=== PATIENT | female | born 1950 | race Caucasian/White ===

== ENCOUNTER → 2017-10-24 | Outpatient (CLI) | payer MEDICARE, OTHER ==
[~2017-10-24] MED LIST: ASP81CT PO; ASP81TEC PO; ATR20T PO; CALC-760 PO; CALC-80 PO; DIPH25TA82 PO; FLC150T PO; HYDR-3583 PO; LISI5TAB PO; MULT-608 PO; NYST1000 PO; OXYC-12 PO; OXYC-281 PO; SIMV40TA4 PO; SULF1TAB38 PO; TMSL.4C BC; TMSL.4C PO
--- NOTE | 2017-10-24 12:16 | Diagnostic Imaging Report ---
EXAMINATION: DEXA scan. INDICATION: Osteopenia. TECHNIQUE: Bone mineral density estimated based on dual energy radiography over the lumbar spine and femoral necks, was performed. FINDINGS: The lumbar spine T-score is -1.1. T score over the left femoral neck is -1.9. The right hip has internal fixation hardware preventing its measurements. IMPRESSION: Osteopenia. Dictated by: Dictated on workstation # [id number]
== END ==
LOC: RAD 10:12
PROVIDERS: ATTEND Internal Medicine
DX: M85.852 Other specified disorders of bone density and structure, left thigh (principal); M85.88 Other specified disorders of bone density and structure, other site
CPT/HCPCS: 77080

== ENCOUNTER 2020-10-08 14:14 | Emergency (ER) | payer MEDICARE, OTHER ==
[~2020-10-08] VITALS: Ht 154.9 cm; Wt 56.7 kg
--- NOTE | 2020-10-08 15:14 | ED Fall/Injury ---
General Chief Complaint: Trauma-Non Activation Stated Complaint: FALL - R HAND PAIN - HIT HEAD Source: patient Exam Limitations: no limitations History of Present Illness Date Seen by Provider: Oct 08, 2020 Time Seen by Provider: 15:12 Initial Comments To ER with a fall at home. She is not sure why she fell. This occurred while she was walking up a ramp. She now has pain and deformity to the proximal aspect of the right third fourth and fifth fingers, some bruising over the base of the left thumb and an abrasion to the bridge of her nose and the bottom of her nose. No neck pain or headache. Occurred: just prior to arrival Severity: moderate Injuries/Pain Location: no injury Loss of Consciousness: no loss of consciousness Associated Symptoms (Fall): No Headache, No Neck Pain Allergies and Home Medications Allergies Coded Allergies: morphine (Unverified Allergy, HIVRADHA, 12/04/10) Home Medications Aspirin 81 Mg Chew, 81 MG PO DAILY, (Reported) Atorvastatin 20 Mg Tablet, 1 EACH PO DAILY, (Reported) Multivitamins 1 Tab Tablet, 1 TAB PO DAILY, (Reported) Oxycodone HCl/Acetaminophen 1 Each Tablet, 1 TAB PO Q4H Prescribed by: YAKELIN REID on 10/08/20 1554 Oxycodone Hcl/Acetaminophen 1 Each Tablet, 1 EACH PO Q6H, (Reported) Tamsulosin Hcl 0.4 Mg Cap, 0.4 MG BC DAILY, (Reported) Patient Home Medication List Home Medication List Reviewed: Yes Review of Systems Review of Systems Constitutional: see HPI Eyes: No Symptoms Reported Ears, Nose, Mouth, Throat: no symptoms reported Respiratory: no symptoms reported Cardiovascular: no symptoms reported Genitourinary: no symptoms reported Musculoskeletal: see HPI Skin: no symptoms reported Psychiatric/Neurological: No Symptoms Reported Past Ifrdmsp-Sqwfsg-Ngonht Hx Patient Social History Recent Foreign Travel: No Contact w/Someone Who Travel: No Past Medical History Reproductive Disorders: No Physical Exam Vital Signs Vital Signs - First Documented 10/08/20 14:57 Pulse 99 Resp 20 B/P (MAP) 176/82 (113) Pulse Ox 97 O2 Delivery Room Air Capillary Refill : Height, Weight, BMI Height: '" Weight: lbs. oz. kg; BMI Method: General Appearance: WD/WN, no apparent distress HEENT: PERRL/EOMI, normal ENT inspection, TMs normal, other (There is no cast sign or hemotympanum no septal deviation that is apparent no epistaxis no septal hematoma. There is an abrasion to the tip of the nose and the bridge of the nose but no laceration and nothing that requires suturing. No periorbital ecchymosis ) Respiratory: no respiratory distress, no accessory muscle use Gastrointestinal: normal bowel sounds, non tender, soft Extremities: other (She does have some bruising over the proximal aspect of the second and third metacarpals on the right hand as well as some deformity at the third fourth and fifth MCP joints of the right hand. There is no visible swelling of the left hand.) Neurologic/Psychiatric: alert, normal mood/affect, oriented x 3 Skin: normal color, warm/dry Chappells Coma Score Best Eye Response: (4) Open Spontaneously Best Verbal Response: (5) Oriented Best Motor Response: (6) Obeys Commands Stone Total: 15 Progress/Results/Core Measures Results/Orders My Orders Orders - YAKELIN REID APRN Ct Head/Cervical Spine Wo (10/08/20 15:11) Oxycodone/Apap 5/325mg Tablet (Percocet (10/08/20 15:15) Hand, Right, 3 Views (10/08/20 15:11) Medications Given in ED Current Medications Medications Dose Ordered Sig/[place] Route Start Time Stop Time Status Last Admin Dose Admin Oxycodone/ Acetaminophen 1 tab ONCE ONCE PO 10/08/20 15:15 10/08/20 15:16 DC 10/08/20 15:35 1 TAB Vital Signs/I&O 10/08/20 10/08/20 14:57 16:36 Pulse 99 87 Resp 20 20 B/P (MAP) 176/82 (113) 142/80 (113) Pulse Ox 97 98 O2 Delivery Room Air Departure Communication (Admissions) placed in a volar wrist splint extending out past the fingertips using o rthoglass. Remains neurovascularly intact. Impression Primary Impression: Finger fracture, right Qualified Codes: S62.616A - Displaced fracture of proximal phalanx of right little finger, initial encounter for closed fracture Disposition: HOME, SELF-CARE Condition: Stable Departure-Patient Inst. Decision time for Depature: 15:53 Referrals: LALY RAMOS JOHN D MD (PCP/Family) Primary Care Physician ZAFUTA,SAMARA P MD Patient Instructions: Hand Fracture Add. Discharge Instructions: 1. Wear the splint at all times. Keep the hand elevated as you have been doing. Try to keep the splint dry which means a trash bag over the arm in the meantime to help keep it from getting wet in the shower. Pain medication as directed. Call an orthopedist of your choosing on Saturday for an appointment to be seen. All discharge instructions reviewed with patient and/or family. Voiced understanding. Scripts Oxycodone HCl/Acetaminophen (Percocet 5-325 mg Tablet) 1 Each Tablet 1 TAB PO Q4H for PAIN-MODERATE MDD 6 TABS for 7 Days, #14 TAB Prov: YAKELIN REID APRN 10/08/20 YAKELIN REID APRN Oct 08, 2020 15:14
[2020-10-08] MEDS ORDERED: oxyCODONE/APAP 5/325MG (PERCOCET 5) TABLET PO ONE (15:15)
[2020-10-08] MEDS ORDERED: OXYC1TAB87 PO (15:54)
--- NOTE | 2020-10-08 15:54 | Diagnostic Imaging Report ---
INDICATION: Fall, right hand pain. EXAMINATION: Four views of the right hand were obtained. FINDINGS: Nondisplaced oblique fracture of the proximal phalanx of the 3rd digit. There is a mildly displaced angulated fracture involving the proximal aspect of the proximal phalanx of the 4th digit which extends to the metacarpophalangeal joint. There is an oblique fracture of the proximal aspect of the proximal phalanx of the 5th digit which is mildly angulated. IMPRESSION: There are fractures of the proximal phalanges of the 3rd, 4th and 5th digits. Dictated by: Dictated on workstation # [id number]
--- NOTE | 2020-10-08 15:58 | Diagnostic Imaging Report ---
PROCEDURE: CT head and CT cervical spine without contrast. TECHNIQUE: Multiple contiguous axial images were obtained through the brain and cervical spine without the use of intravenous contrast. Sagittal and coronal reformations through the cervical spine were then performed. Auto Exposure Controls were utilized during the CT exam to meet ALARA standards for radiation dose reduction. INDICATION: Fall, headache. FINDINGS: The ventricles are normal in size, shape and position. There is no acute parenchymal hemorrhage, edema or mass. There is no extra-axial mass or hemorrhage. No skull fracture is seen. There is normal height and alignment of the cervical vertebral bodies. There is at least some disc space narrowing at all levels but is most pronounced at C4-C5 and C5-C6. No fracture or other acute abnormality is seen. IMPRESSION: 1. CT of the head shows no acute abnormality. 2. CT of the cervical spine shows degenerative changes but no acute abnormality. Dictated by: Dictated on workstation # [id number]
[2020-10-08 16:36] VITALS: BP 142/80
== END 2020-10-08 16:36 | disposition home or self-care (01) ==
LOC: EDUNIT# 14:14 → ER 14:15
DX: S62.642A Nondisplaced fracture of proximal phalanx of right middle finger, initial encounter for closed fracture (principal); S62.614A Displaced fracture of proximal phalanx of right ring finger, initial encounter for closed fracture; S62.616A Displaced fracture of proximal phalanx of right little finger, initial encounter for closed fracture; S60.012A Contusion of left thumb without damage to nail, initial encounter; S00.31XA Abrasion of nose, initial encounter; R40.2410 Glasgow coma scale score 13-15, unspecified time; Z88.5 Allergy status to narcotic agent; Z79.82 Long term (current) use of aspirin; W18.39XA Other fall on same level, initial encounter
CPT/HCPCS: 29125; 70450; 72125; 73130

== ENCOUNTER → 2020-10-10 | Outpatient (CLI) | payer MEDICARE, OTHER ==
[~2020-10-10] MED LIST changes: +OXYC1TAB87 PO
[2020-10-10 13:52] LABS: ABSOLUTE RETIC # 40 10e9/uL (24-90); BASOPHILS % (AUTO) 1 % (0-10); EOSINOPHILS # (AUTO) 0.1 10^3/uL (0.0-0.3); EOSINOPHILS % (AUTO) 2 % (0-10); HEMATOCRIT 38 % (35-52); HEMOGLOBIN 12.2 g/dL (11.5-16.0); LYMPHOCYTES % (AUTO) 20 % (12-44); MEAN CORPUSCULAR HEMOGLOBIN 29 pg (25-34); MEAN CORPUSCULAR HGB CONC 32 g/dL (32-36); MEAN CORPUSCULAR VOLUME 89 fL (80-99); MONOCYTES # (AUTO) 0.7 10^3/uL (0.0-1.0); MONOCYTES % (AUTO) 13 % (0-12); NEUTROPHILS # (AUTO) 3.2 10^3/uL (1.8-7.8); NEUTROPHILS % (AUTO) 64 % (42-75); PLATELET COUNT 238 10^3/uL (130-400); RETICULOCYTE % 0.94 % (0.50-2.40); WHITE BLOOD COUNT 4.9 10^3/uL (4.3-11.0)
[2020-10-10 14:20] LABS: BASOPHILS % (MANUAL) 1 %; EOSINOPHILS % (MANUAL) 2 %; LYMPHOCYTES % (MANUAL) 25 %; MONOCYTES % (MANUAL) 11 %; NEUTROPHILS % (MANUAL) 61 %; RBC MORPH NORMAL
== END ==
LOC: LAB 13:15
PROVIDERS: ATTEND Internal Medicine
DX: D72.819 Decreased white blood cell count, unspecified (principal); D72.821 Monocytosis (symptomatic)
CPT/HCPCS: 36415; 82977; 84075; 85007; 85027; 85045; 85055

== ENCOUNTER → 2021-04-25 | Outpatient (CLI) | payer MEDICARE, OTHER ==
--- NOTE | 2021-04-25 15:28 | Diagnostic Imaging Report ---
INDICATION: 70-year-old asymptomatic postmenopausal female. COMPARISON: 10/24/2017 FINDINGS: AP Spine L1-L4: [BMD (g/cm2): 0.890] [T-Score: -2.6] [Z-Score: -0.7] [BMD Previous: 1.068] [BMD % Change: -16.7] LT Hip Neck: [BMD (g/cm2): 0.600] [T-Score: -3.1] [Z-Score: -1.3] LT Hip Total: [BMD (g/cm2):0.716] [T-Score:-2.3] [Z-Score: -0.7] [BMD Previous: 0.774] [BMD % Change: -7.5] *Indicates significant change from prior examination based on 95% confidence level. World Health Organization criteria for BMD interpretation classify patients as Normal (T-score at or above -1.0), Osteopenic (T-score between -1.0 and -2.5) or Osteoporotic (T-score at or below -2.5). LIMITATIONS AND MODIFICATION: Right hip is unable be utilized due to orthopedic hardware. FRACTURE RISK (FRAX SCORE): Not applicable as patient meets criteria for osteoporosis. IMPRESSION: 1. Osteoporosis. 2. No significant change in bone mineral density since prior examination. 3. See below National Osteoporosis Foundation guidelines on when to potentially initiate pharmacologic therapy. Based on the National Osteoporosis Foundation Guidelines, pharmacologic treatment should be initiated in any of the following, unless clinical conditions suggest otherwise: * Any patient with prior fragility fracture of the hip or vertebrae. A spine fracture indicates 5X risk for subsequent spine fracture and 2X risk for subsequent hip fracture. * Osteoporosis (T-score <-2.5). * Postmenopausal women and men age 50 and older with low bone mass/osteopenia (T-score between -1.0 and -2.5) by DXA and 10-year major osteoporotic fracture greater than 20% or a 10-year probability of hip fracture greater than 3%. These fracture risks are supplied above in the FRAX score, if applicable. * Clinician judgement and/or patient preferences may indicate treatment for people with 10-year fracture probabilities above or below these levels. Dictated by: Dictated on workstation # [id number]
== END ==
LOC: RAD 11:00
PROVIDERS: ATTEND Internal Medicine
DX: M81.0 Age-related osteoporosis without current pathological fracture (principal); Z78.0 Asymptomatic menopausal state
CPT/HCPCS: 77080

== ENCOUNTER 2021-09-18 05:37 | Outpatient (CLI) | payer MEDICARE, OTHER ==
[~2021-09-18] VITALS: Ht 157.5 cm; Wt 59.9 kg
[2021-09-18] MEDS ORDERED: ASPI-999 PO (14:19)
[2021-09-18] MEDS ORDERED: ATOR20TA66 PO (14:19)
[2021-09-18] MEDS ORDERED: CALC600T91 PO (14:19)
[2021-09-18] MEDS ORDERED: ALEN70TA80 PO (14:19)
== END 2021-09-18 16:18 | disposition home or self-care (01) ==
LOC: PREOP 05:37
PROVIDERS: ATTEND Surgery
DX: Z01.818 Encounter for other preprocedural examination (principal)

== ENCOUNTER → 2021-09-25 | Day surgery (SDC) | payer MEDICARE, OTHER ==
[~2021-09-25] VITALS: Ht 157.5 cm; Wt 59.9 kg
[~2021-09-25] MED LIST changes: +ALEN70TA80 PO; +ASPI-999 PO; +ATOR20TA66 PO; +CALC600T91 PO; +LACTATED RINGERS 1,000 ML IV ONE; +LACTATED RINGERS 1,000 ML IV STA; +MIDAZOLAM 2 MG/2 ML (VERSED) VIAL ONE; +PROPOFOL INJECTION 50 ML IV ONE
[2021-09-25 09:20] VITALS: BP 170/78
--- NOTE | 2021-09-25 09:32 | Progress Note-Pre Operative ---
Pre-Operative Progress Note H&P Reviewed The H&P was reviewed, patient examined and no changes noted. Time Seen by Provider: 09:29 Date H&P Reviewed: Sep 25, 2021 Time H&P Reviewed: :29 Pre-Operative Diagnosis: screening colon ELIEL ROBBINS DO Sep 25, 2021 09:32
[2021-09-25 10:35] VITALS: BP 93/47
[2021-09-25 10:40] VITALS: BP 94/50
[2021-09-25 10:45] VITALS: BP 115/58
--- NOTE | 2021-09-25 10:46 | Progress Note-Post Operative ---
Post-Operative Progess Note Surgeon (s)/Language Path (s) Surgeon ELIEL ROBBINS DO Language Path: SHAREE Graff Pre-Operative Diagnosis screening colon Post-Operative Diagnosis Polyps poor prep diverticula int hemorrhoids Procedure & Operative Findings Date of Procedure 09/25/21 Procedure Performed/Findings Colon with snare Colon with hot bx PROCEDURE NOTE: After informed consent was obtained, the patient was brought to the endoscopy suite, placed in bed in left lateral decubitus position. She was administered IV sedation by the ACUTE CARE NURSING ASSISTANT who then monitored her vitals the entire time, heart rate, blood pressure and pulse ox and the scope was inserted, pushed all the way to about 150 cm and pushed into the cecum, took a picture of appendiceal orifice and noted the Ileo-cecal valve. She unfortunately had a lot of retained fecal material, unable to suction all of it up because the pieces got stuck in channel. Just outside the cecum saw 3 flat polyps, elected to do hot biopsy. Then slowly withdrew the scope insufflating to look circumferentially at the longoria. Starting from the cecum, up the ascending colon to the hepatic flexure, then down the transverse colon, splenic flexure, into the descending colon where I saw one diverticula. Continued down into the sigmoid and almost to the rectum, saw another larger polyp. I wanted to completely remove this one so I elected to do a snare polypectomy. Finally into the rectal vault and retroflexed the scope. Took picture of the internal hemorrhoids. The patient tolerated the procedure. She was recovered in endoscopy suite. Anesthesia Type IV sedation by ACUTE CARE NURSING ASSISTANT Estimated Blood Loss Estimated blood loss (mL): scant Specimens/Packing Specimens Removed asc colon polyp x 3 sigmoid polyp ELIEL ROBBINS DO Sep 25, 2021 10:46
--- NOTE | 2021-09-25 10:47 | Endoscopy Discharge Instruct ---
Endo Procedure/Findings Findings 1.: Polyp 2.: Diverticulosis 3.: Internal Hemorrhoids 4.: Other Findings (poor prep) Discharge Instructions - Activity: You might feel a little sleepy until tomorrow. This is due to the medicine you received to relax you. Until tomorrow, you should: NOT drive a car, operate machinery or power tools. NOT drink any alcoholic beverages. NOT make any important decisions or sign importortant papers. Do not return to work until tomorrow, unless otherwise instructed. Resume previous activities tomorrow. Diet: Start by taking liquids. If you tolerate liquids, advance to solid food. 1.: Colonoscopy in 1 year Notify Physician - If you experience excessive bleeding, unusual abdominal pain, fever, or chest pain, contact your doctor immediately. ELIEL ROBBINS DO Sep 25, 2021 10:47
[2021-09-25 11:17] VITALS: BP 115/58
--- NOTE | 2021-09-25 11:43 | Anesthesia-General Post-Op ---
MAC Patient Condition Mental Status/LOC: Same as Preop Cardiovascular: Satisfactory Nausea/Vomiting: Absent Respiratory: Satisfactory Pain: Controlled Complications: Absent Post Op Complications Complications None Follow Up Care/Instructions Patient Instructions None needed. Anesthesiology Discharge Order Discharge Order Patient is doing well, no complaints, stable vital signs, no apparent adverse anesthesia problems. No complications reported per nursing. ADA ROSS CRNA Sep 25, 2021 11:43
== END | disposition home or self-care (01) ==
LOC: ENDO 08:44
PROVIDERS: ATTEND Surgery
DX: Z12.11 Encounter for screening for malignant neoplasm of colon (principal); D12.2 Benign neoplasm of ascending colon; K63.5 Polyp of colon; K57.30 Diverticulosis of large intestine without perforation or abscess without bleeding; E78.5 Hyperlipidemia, unspecified; Z88.5 Allergy status to narcotic agent; Z79.82 Long term (current) use of aspirin; Z79.899 Other long term (current) drug therapy; Z85.51 Personal history of malignant neoplasm of bladder
CPT/HCPCS: 88305

== ENCOUNTER → 2022-01-30 | Outpatient (CLI) | payer MEDICARE, OTHER ==
[~2022-01-30] MED LIST changes: -LACTATED RINGERS 1,000 ML IV ONE; -LACTATED RINGERS 1,000 ML IV STA; -MIDAZOLAM 2 MG/2 ML (VERSED) VIAL ONE; -PROPOFOL INJECTION 50 ML IV ONE
--- NOTE | 2022-01-30 15:35 | Diagnostic Imaging Report ---
INDICATION: Kidney calculus. TIME OF EXAM: 2:30 PM CORRELATION is made with prior radiograph from 09/25/2016. Ovoid calcific density is noted in the left abdomen at L2. This could potentially be ureteric. Additional calcific densities project just cephalad to this which may be located within the left kidney. Right kidneys shadow is obscured by fecal material. Bowel gas pattern is nonobstructed. There are postoperative changes of the right hip. IMPRESSION: 1. Left sided abdominal calcifications could be urinary tract based. An ovoid calcific density projects in the region of the proximal left ureter measuring 18 mm x [address] may be useful for further characterization. 2. Moderate stool in the colon consistent with constipation. Dictated by: Dictated on workstation # [id number]
== END ==
LOC: RAD 13:53
PROVIDERS: ATTEND Specialist
DX: N20.0 Calculus of kidney (principal); C67.2 Malignant neoplasm of lateral wall of bladder
CPT/HCPCS: 74018

== ENCOUNTER → 2022-04-30 | Outpatient (CLI) | payer MEDICARE, OTHER ==
--- NOTE | 2022-04-30 13:16 | Diagnostic Imaging Report ---
PROCEDURE: CT head and maxillofacial without contrast. TECHNIQUE: Multiple contiguous axial images were obtained through the head and facial bones without the use of intravenous contrast. Auto Exposure Controls were utilized during the CT exam to meet ALARA standards for radiation dose reduction. INDICATION: Fall. Head and facial pain. COMPARISON: CT head without contrast 10/08/2020. FINDINGS: Mild to moderate generalized parenchymal volume loss. 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 No CT evidence of acute territorial infarction. No intracranial hemorrhage, mass effect, hydrocephalus or extra-axial fluid collections. Intracranial vascular calcifications. The skull base and calvarium are intact. Paranasal sinuses and mastoids are clear. Chronic fracture of the left zygoma. Age-indeterminate minimally displaced bilateral nasal bone fractures. No other maxillofacial fractures. Normal alignment of the temporomandibular joints. The mandible is intact. IMPRESSION: 1. No acute intracranial CT findings. 2. Age-indeterminate minimally displaced nasal bone fractures. 3. Chronic left zygoma fracture. Dictated by: Dictated on workstation # [id number]
== END ==
LOC: RAD 12:26
PROVIDERS: ATTEND Internal Medicine
DX: S02.40FA Zygomatic fracture, left side, initial encounter for closed fracture (principal); W19.XXXA Unspecified fall, initial encounter
CPT/HCPCS: 70450; 70486

== ENCOUNTER → 2022-09-25 | Outpatient (CLI) | payer MEDICARE, OTHER ==
[2022-09-25 11:12] LABS: ABSOLUTE RETIC # 40 10e9/uL (24-90); BASOPHILS # (AUTO) 0.1 10^3/uL (0.0-0.1); BASOPHILS % (AUTO) 2 % (0-10); EOSINOPHILS # (AUTO) 0.2 10^3/uL (0.0-0.3); EOSINOPHILS % (AUTO) 5 % (0-10); HEMATOCRIT 39 % (35-52); HEMOGLOBIN 13.1 g/dL (11.5-16.0); LYMPHOCYTES # (AUTO) 1.2 10^3/uL (1.0-4.0); LYMPHOCYTES % (AUTO) 31 % (12-44); MEAN CORPUSCULAR HEMOGLOBIN 29 pg (25-34); MEAN CORPUSCULAR HGB CONC 33 g/dL (32-36); MEAN CORPUSCULAR VOLUME 87 fL (80-99); MEAN PLATELET VOLUME 9.8 fL (9.0-12.2); MONOCYTES # (AUTO) 0.6 10^3/uL (0.0-1.0); MONOCYTES % (AUTO) 15 % (0-12); NEUTROPHILS # (AUTO) 1.9 10^3/uL (1.8-7.8); NEUTROPHILS % (AUTO) 48 % (42-75); PLATELET COUNT 255 10^3/uL (130-400); RETICULOCYTE % 0.88 % (0.50-2.40)
[2022-09-25 11:44] LABS: BAND NEUTROPHILS 0 %; BASOPHILS % (MANUAL) 2 %; EOSINOPHILS % (MANUAL) 3 %; LYMPHOCYTES % (MANUAL) 28 %; MONOCYTES % (MANUAL) 20 %; NEUTROPHILS % (MANUAL) 47 %; RBC MORPH NORMAL
== END ==
LOC: LAB 10:36
PROVIDERS: ATTEND Nurse Practitioner Family
DX: D72.818 Other decreased white blood cell count (principal); D72.821 Monocytosis (symptomatic); E83.50 Unspecified disorder of calcium metabolism
CPT/HCPCS: 36415; 82310; 85007; 85027; 85045; 85055

== ENCOUNTER → 2023-04-30 | Outpatient (CLI) | payer MEDICARE, OTHER ==
--- NOTE | 2023-04-30 16:50 | Diagnostic Imaging Report ---
INDICATION: Postmenopausal state COMPARISON: 04/25/2021 FINDINGS: AP Spine L1-L4: [BMD (g/cm2): 0.958] [T-Score: -2.0] [Z-Score: 0.0] [BMD Previous: 0.890] [BMD % Change: 7.6*] LT Hip Neck: [BMD (g/cm2): 0.637] [T-Score: -2.9] [Z-Score: -0.9] LT Hip Total: [BMD (g/cm2):0.748] [T-Score:-2.1] [Z-Score: -0.3] [BMD Previous: 0.716] [BMD % Change: 4.5] RT Hip Neck: [BMD (g/cm2):NA] [T-Score:NA] [Z-Score:NA] RT Hip Total: [BMD (g/cm2):NA] [T-score:NA] [Z-Score:NA] [BMD Previous:NA] [BMD % Change:NA] *Indicates significant change from prior examination based on 95% confidence level. World Health Organization criteria for BMD interpretation classify patients as Normal (T-score at or above -1.0), Osteopenic (T-score between -1.0 and -2.5) or Osteoporotic (T-score at or below -2.5). LIMITATIONS AND MODIFICATION: Right hip was not evaluated secondary to postsurgical changes. FRACTURE RISK (FRAX SCORE): The ten year probability of (%): Major Osteoporotic Fracture: [26.9] Hip Fracture: [9.1] IMPRESSION: 1. Osteoporosis. 2. Bone mineral density within the lumbar spine has not significantly increased since the prior examination. Bone mineral density within the left hip has not significantly changed. 3. See below National Osteoporosis Foundation guidelines on when to potentially initiate pharmacologic therapy. Based on the National Osteoporosis Foundation Guidelines, pharmacologic treatment should be initiated in any of the following, unless clinical conditions suggest otherwise: * Any patient with prior fragility fracture of the hip or vertebrae. A spine fracture indicates 5X risk for subsequent spine fracture and 2X risk for subsequent hip fracture. * Osteoporosis (T-score <-2.5). * Postmenopausal women and men age 50 and older with low bone mass/osteopenia (T-score between -1.0 and -2.5) by DXA and 10-year major osteoporotic fracture greater than 20% or a 10-year probability of hip fracture greater than 3%. These fracture risks are supplied above in the FRAX score, if applicable. * Clinician judgement and/or patient preferences may indicate treatment for people with 10-year fracture probabilities above or below these levels. Dictated by: Dictated on workstation # [id number]
== END ==
LOC: RAD 14:05
PROVIDERS: ATTEND Internal Medicine
DX: M81.0 Age-related osteoporosis without current pathological fracture (principal); Z78.0 Asymptomatic menopausal state
CPT/HCPCS: 77080